=== PATIENT | female | born 1965 | race Caucasian/White ===

== ENCOUNTER 2022-05-25 15:11 | Emergency (ER) | payer OTHER, MEDICAID ==
[~2022-05-25] VITALS: Ht 147.3 cm; Wt 46.7 kg
[2022-05-25 15:21] VITALS: BP 146/89
[2022-05-25] MEDS ORDERED: MAGN296S48 PO (17:11)
[2022-05-25] MEDS ORDERED: NA P135N RC (17:11)
--- NOTE | 2022-05-25 17:43 | NUR ---
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 PER HYDRAULIC PRESS IN OPERATOR PATIENT APPETITE AT BASELINE.
[2022-05-25 17:51] VITALS: BP 146/89
--- NOTE | 2022-05-25 17:52 | NUR ---
Patient discharged with v/s stable. Written and verbal after care instructions ABOUT CONSTIPATION given and explained. Patient alert, oriented and verbalized understanding of instructions. Ambulatory with steady gait. All questions addressed prior to discharge. ID band removed. Patient advised to follow up with PMD. Rx of CITROMA AND FLEET ENEMA given. Patient educated on indication of medication including possible reaction and side effects. Opportunity to ask questions provided and answered.
== END 2022-05-25 17:03 | disposition home or self-care (01) ==
LOC: MED 15:11
DX: K59.00 Constipation, unspecified (principal); Z79.899 Other long term (current) drug therapy; Z88.0 Allergy status to penicillin
CPT/HCPCS: 74022; 99284